=== PATIENT | male | born 1955 | race Caucasian/White ===

== ENCOUNTER → 2016-03-27 | Outpatient (CLI) | payer BC, OTHER ==
[~2016-03-27] MED LIST: AMIT PO; AML5T PO; ASPI81CH43 PO; CARV3.1213 PO; CYCL-181 PO; ESCI10TA PO; GABA-339 PO; INSUINJ32 SC; ISOS20TA49 PO; LORA-154 PO; METF-314 PO; MORP1CAP PO; NAPR-476 PO; NOR10T PO; NOR5T PO; PRAS10TA PO; TORS20TA20 PO
[2016-03-27 10:23] VITALS: BP_SYST 140; BP_SYST 142; BP_DIAS 67; BP_DIAS 72
== END | disposition home or self-care (01) ==
LOC: CHF HDHVI 11:13
PROVIDERS: ATTEND Internal Medicine Cardiovascular Disease
DX: I50.23 Acute on chronic systolic (congestive) heart failure (principal); I25.708 Atherosclerosis of coronary artery bypass graft(s), unspecified, with other forms of angina pectoris; I25.5 Ischemic cardiomyopathy; Z95.1 Presence of aortocoronary bypass graft; Z95.5 Presence of coronary angioplasty implant and graft; I63.8 Other cerebral infarction
CPT/HCPCS: G0166

== ENCOUNTER → 2016-03-28 | Outpatient (CLI) | payer BC, OTHER ==
[2016-03-28 10:10] VITALS: BP_SYST 120; BP_SYST 123; BP_DIAS 71; BP_DIAS 75
== END | disposition home or self-care (01) ==
LOC: CHF HDHVI 09:37
PROVIDERS: ATTEND Internal Medicine Cardiovascular Disease
DX: I50.23 Acute on chronic systolic (congestive) heart failure (principal); I63.8 Other cerebral infarction; I25.5 Ischemic cardiomyopathy; I25.708 Atherosclerosis of coronary artery bypass graft(s), unspecified, with other forms of angina pectoris; Z95.1 Presence of aortocoronary bypass graft; Z95.5 Presence of coronary angioplasty implant and graft
CPT/HCPCS: G0166

== ENCOUNTER → 2016-04-23 | Outpatient (CLI) | payer BC, OTHER ==
[2016-04-23 12:14] LABS: Basophils # (auto) 0 uL; Basophils % (auto) 0.4 % (0.0-2.0); Eosinophils # (auto) 0.1 uL; Eosinophils % (auto) 1.2 % (0.0-7.0); Hematocrit 43.4 % (41.0-53.0); Hemoglobin 14.5 g/dL (13.5-17.5); Lymphocytes # (auto) 1.8 uL; Lymphocytes % (auto) 24.6 % (10.0-50.0); Mean Corpuscular Hemoglobin 27.2 pg (28.0-32.0); Mean Corpuscular Hgb Conc. 33.5 g/dL (32.0-36.0); Mean Corpuscular Volume 81.3 fL (80.0-100.0); Mean Platelet Volume 10.1 fL (7.4-10.4); Monocytes # (auto) 0.4 uL; Monocytes % (auto) 5.1 % (0.0-12.0); Neutrophils # (auto) 5.1 uL; Neutrophils % (auto) 68.7 % (37.0-80.0); Platelet Count (auto) 281 10^3/uL (140-450); Red Cell Distribution Width 14.1 % (11.6-16.0); White Blood Cell 7.4 10^3/uL (4.4-10.8)
[2016-04-23 13:45] LABS: BUN/Creatinine Ratio 17.5; Calcium 9.5 mg/dL (8.5-10.1); Potassium 4.2 mmol/L (3.5-5.1)
== END | disposition home or self-care (01) ==
LOC: LAB 09:46
PROVIDERS: ATTEND Internal Medicine Cardiovascular Disease
DX: I10 Essential (primary) hypertension (principal); D64.9 Anemia, unspecified
CPT/HCPCS: 36415; 80048; 85025

== ENCOUNTER → 2016-05-01 | Outpatient (CLI) | payer BC, OTHER ==
[2016-05-01 10:16] VITALS: BP_SYST 126; BP_SYST 132; BP_DIAS 70; BP_DIAS 79
== END | disposition home or self-care (01) ==
LOC: CHF HDHVI 09:54
PROVIDERS: ATTEND Internal Medicine Cardiovascular Disease
DX: I50.23 Acute on chronic systolic (congestive) heart failure (principal); I25.5 Ischemic cardiomyopathy; I25.708 Atherosclerosis of coronary artery bypass graft(s), unspecified, with other forms of angina pectoris; I63.9 Cerebral infarction, unspecified; Z95.5 Presence of coronary angioplasty implant and graft; Z95.1 Presence of aortocoronary bypass graft; Z98.61 Coronary angioplasty status
CPT/HCPCS: G0166

== ENCOUNTER → 2016-05-02 | Outpatient (CLI) | payer BC, OTHER ==
[2016-05-02 10:15] VITALS: BP_SYST 109; BP_SYST 111; BP_DIAS 56; BP_DIAS 57
== END | disposition home or self-care (01) ==
LOC: CHF HDHVI 10:14
PROVIDERS: ATTEND Internal Medicine Cardiovascular Disease
DX: I50.23 Acute on chronic systolic (congestive) heart failure (principal); I25.708 Atherosclerosis of coronary artery bypass graft(s), unspecified, with other forms of angina pectoris; I25.5 Ischemic cardiomyopathy; I63.9 Cerebral infarction, unspecified; Z98.61 Coronary angioplasty status; Z95.5 Presence of coronary angioplasty implant and graft; Z95.1 Presence of aortocoronary bypass graft
CPT/HCPCS: G0166

== ENCOUNTER → 2016-05-21 | Outpatient (CLI) | payer BC, OTHER ==
[2016-05-21 10:22] VITALS: BP_SYST 109; BP_SYST 112; BP_DIAS 68; BP_DIAS 71
== END ==
LOC: CHF HDHVI 09:53
PROVIDERS: ATTEND Internal Medicine Cardiovascular Disease
DX: I25.708 Atherosclerosis of coronary artery bypass graft(s), unspecified, with other forms of angina pectoris (principal); I25.5 Ischemic cardiomyopathy; I50.23 Acute on chronic systolic (congestive) heart failure; Z98.61 Coronary angioplasty status; Z95.1 Presence of aortocoronary bypass graft; I63.9 Cerebral infarction, unspecified; Z95.5 Presence of coronary angioplasty implant and graft
CPT/HCPCS: G0166

== ENCOUNTER 2017-03-07 16:40 | Inpatient (IN) | payer OTHER, BC ==
[~2017-03-07] VITALS: Ht 188 cm; Wt 115.7 kg
[~2017-03-07 16:40] MED LIST changes: +CAR3125T PO; -CARV3.1213 PO; +CLON0.2T PO; +HYDR-4683 PO; +ISO60SRT PO; -ISOS20TA49 PO; +LISI-646 PO; -METF-314 PO; +METF-371 PO; +METO25TA62 PO; +MONT10TA34 PO; -NOR5T PO; +RANO1000 PO; +SIMV-8 PO; +SULF800T7 PO; +TAMS0.4C36 PO
[2017-03-07] MEDS ORDERED: FLUMAZENIL 0.1 MG/ML INJ 10ML MDV IV ONE (17:15)
[2017-03-07 17:55] LABS: Basophils # (auto) 0 uL; Basophils % (auto) 0.1 % (0.0-2.0); Eosinophils # (auto) 0 uL; Hemoglobin 13.2 g/dL (13.5-17.5); Lymphocytes # (auto) 0.7 uL; Lymphocytes % (auto) 7.1 % (10.0-50.0); Mean Corpuscular Hemoglobin 27.6 pg (28.0-32.0); Mean Corpuscular Hgb Conc. 33.1 g/dL (32.0-36.0); Mean Corpuscular Volume 83.3 fL (80.0-100.0); Monocytes # (auto) 0.5 uL; Neutrophils # (auto) 8.7 uL; Neutrophils % (auto) 87.8 % (37.0-80.0); Platelet Count (auto) 223 10^3/uL (140-450); Red Cell Distribution Width 14.8 % (11.8-14.3); White Blood Cell 9.9 10^3/uL (4.4-10.8)
[2017-03-07 18:08] LABS: INR 0.92 (0.9-1.15); Partial Thromboplastin Time 25.6 sec (22.64-33.71)
[2017-03-07 18:18] LABS: Albumin 3.3 g/dL (3.4-5.0); BUN/Creatinine Ratio 20.1; Calcium 8.4 mg/dL (8.5-10.1); Potassium 4.7 mmol/L (3.5-5.1)
[2017-03-07 18:24] LABS: Acetaminophen < 2.0 ug/mL (10-30); Salicylate < 1.7 mg/dL (2.8-20.0)
[2017-03-07 18:27] LABS: Bilirubin, Total 0.6 mg/dL (0.2-1.0); Total Protein 7.3 g/dL (6.4-8.2)
[2017-03-07 21:00] LABS: Urine Bacteria NONE SEEN /hpf (None Seen); Urine Blood 2+ /uL (Negative); Urine Specific Gravity 1.019 (1.001-1.035); Urine WBC 16 /hpf (0 - 3)
[2017-03-07 21:08] LABS: Alcohol, Urine < 3.0 mg/dL (0-5); Amphetamine Screen, Urine NEGATIVE (NEGATIVE); Barbiturate Scree,Urine NEGATIVE (NEGATIVE); Benzodiazephine Screen, Urine NEGATIVE (NEGATIVE); Cannabinoid Screen, Urine NEGATIVE (NEGATIVE); Cocaine Screen, Urine NEGATIVE (NEGATIVE); Opiate Scree,Urine POSITIVE (NEGATIVE); Phencyclidine Screen, Urine NEGATIVE (NEGATIVE)
[2017-03-08] MEDS ORDERED: ONDANSETRON HCL 4 MG/2 ML VIAL IV PRN (02:30)
[2017-03-08] MEDS ORDERED: SODIUM CHLORIDE 0.9% 500 ML IV ONE (02:30)
[2017-03-08] MEDS ORDERED: SODIUM CHLORIDE 0.9% 1,000 ML IV SCH (02:30)
[2017-03-08] MEDS ORDERED: HYDROcodone-ACET 5/325MG TAB PO PRN (02:30)
[2017-03-08] MEDS ORDERED: ACETAMINOPHEN 325 MG TAB PO PRN (02:30)
[2017-03-08] MEDS ORDERED: DEXTROSE (50%) 50ML SYRG IV PRN (02:30)
[2017-03-08] MEDS ORDERED: cefTRIAXone 1GM/10ml IVPUSH 10 ML IV ONE (02:45)
[2017-03-08 03:15] VITALS: BP 139/77
[2017-03-08 05:34] VITALS: BP 139/73
[2017-03-08] MEDS: InsuLIN REG 1unit/0.01ml Soln (100units/ml) SC SCH ×2 (06:00→12:00)
[2017-03-08] MEDS: ACCU-CHEK COMFORT CURVE STRIP VI SCH ×2 (06:09→13:04)
[2017-03-08 08:00] VITALS: BP 128/74
[2017-03-08 08:21] VITALS: BP 128/74
[2017-03-08] MEDS ORDERED: PANTOPRAZOLE 40 MG TAB PO SCH (10:00)
[2017-03-08] MEDS ORDERED: ISOSORBIDE MONONITRATE 60 MG TAB PO SCH (10:00)
[2017-03-08] MEDS ORDERED: METOPROLOL SUCCINATE XL 50 MG TAB PO SCH (10:00)
[2017-03-08] MEDS ORDERED: ENOXAPARIN SOD 30 MG/0.3 ML SYRINGE SC SCH (10:00)
[2017-03-08] MEDS ORDERED: CIPR-173 PO (11:34)
[2017-03-08 12:57] VITALS: BP 152/92
[2017-03-08 13:12] VITALS: BP 128/74
[2017-03-08] MEDS ORDERED: PRAVASTATIN SODIUM 20 MG TAB PO SCH (22:00)
[2017-03-08] MEDS ORDERED: PATIENTS OWN MEDICATION (simvastatin 20 MG) PO SCH (22:00)
[2017-03-08] MEDS ORDERED: MONTELUKAST SODIUM 10 MG TAB PO SCH (22:00)
[2017-03-08] MEDS ORDERED: cefTRIAXone 1GM/10ml IVPUSH 10 ML IV SCH (22:00)
== END 2017-03-08 14:00 | disposition home or self-care (01) | DRG 689 ==
LOC: ER 16:40 → OVERFLOW 16:41 → CENTRAL 03-08 03:15
PROVIDERS: ADMIT Nurse Practitioner; ATTEND Nurse Practitioner
DX: N39.0 Urinary tract infection, site not specified (principal); G92 Toxic encephalopathy; E11.22 Type 2 diabetes mellitus with diabetic chronic kidney disease; I13.0 Hypertensive heart and chronic kidney disease with heart failure and stage 1 through stage 4 chronic kidney disease, or unspecified chronic kidney disease; I50.9 Heart failure, unspecified; N18.3 Chronic kidney disease, stage 3 (moderate); E78.5 Hyperlipidemia, unspecified; G89.29 Other chronic pain; I25.10 Atherosclerotic heart disease of native coronary artery without angina pectoris; M54.9 Dorsalgia, unspecified; Z79.82 Long term (current) use of aspirin; Z79.899 Other long term (current) drug therapy; Z79.4 Long term (current) use of insulin; Z86.73 Personal history of transient ischemic attack (TIA), and cerebral infarction without residual deficits; I25.2 Old myocardial infarction; Z82.3 Family history of stroke; Z83.3 Family history of diabetes mellitus; Z82.49 Family history of ischemic heart disease and other diseases of the circulatory system; Z95.1 Presence of aortocoronary bypass graft; Z90.49 Acquired absence of other specified parts of digestive tract; Z80.9 Family history of malignant neoplasm, unspecified; T40.605A Adverse effect of unspecified narcotics, initial encounter
CPT/HCPCS: 36415; 70450; 71045; 80053; 80307; 80329; 81001; 82962; 83880; 84484; 85025; 85610; 85730; 93005; 96374

== ENCOUNTER 2020-09-14 15:24 | Inpatient (IN) | payer BC, OTHER ==
[~2020-09-14] VITALS: Ht 185.4 cm; Wt 108.5 kg
[~2020-09-14 15:24] MED LIST changes: -AMIT PO; +AMIT10TA8 PO; +CIPR-173 PO; -HYDR-4683 PO; -LISI-646 PO; +LISI20TA28 PO; -LORA-154 PO; +LORA-483 PO; -METO25TA62 PO; +METO25TA93 PO; -MONT10TA34 PO; +MONT10TA42 PO; -NAPR-476 PO; -NOR10T PO; -SULF800T7 PO; -TAMS0.4C36 PO
[2020-09-14 15:54] LABS: Basophils # (auto) 0 10 ^3/uL (0-0.2); Eosinophils # (auto) 0 10 ^3/uL (0-0.8); Monocytes # (auto) 0.1 10 ^3/uL (0-1.3); Neutrophils # (auto) 1.5 10 ^3/uL (1.6-8.6); Nucleated Red Blood Cells % 0.1 %; White Blood Cell 2.5 10^3/uL (4.4-10.8)
[2020-09-14 15:58] LABS: Basophils % (auto) 0.2 % (0.0-2.0); Eosinophils % (auto) 0.5 % (0.0-7.0); Hematocrit 19.7 % (41.0-53.0); Lymphocytes # (auto) 0.9 10 ^3/uL (0.4-5.4); Lymphocytes % (auto) 35.3 % (10.0-50.0); Mean Corpuscular Hemoglobin 24.8 pg (28.0-32.0); Mean Corpuscular Hgb Conc. 33.9 g/dL (32.0-36.0); Mean Corpuscular Volume 73.2 fL (80.0-100.0); Monocytes % (auto) 5.4 % (0.0-12.0); Neutrophils % (auto) 58.6 % (37.0-80.0); Red Cell Distribution Width 17.5 % (11.8-14.3)
[2020-09-14 16:10] LABS: Albumin 3.1 g/dL (3.4-5.0); Calcium 8.4 mg/dL (8.5-10.1); Magnesium 1.3 mg/dL (1.6-2.6); Potassium 4.1 mmol/L (3.5-5.1)
[2020-09-14 16:11] LABS: INR 1.01 (0.9-1.15); Partial Thromboplastin Time 21.5 sec (23.0-31.2)
[2020-09-14 16:12] LABS: BUN/Creatinine Ratio 16.6
[2020-09-14 16:14] LABS: Hemoglobin 6.7 g/dL (13.5-17.5)
[2020-09-14 16:18] LABS: Bilirubin, Total 0.4 mg/dL (0.2-1.0); Total Protein 6.3 g/dL (6.4-8.2)
[2020-09-14] MEDS ORDERED: MORPHINE SULFATE 4 MG/ML SYR/VIAL IV ONE ×2 (16:30→19:00)
[2020-09-14] MEDS ORDERED: ONDANSETRON HCL 4 MG/2 ML VIAL IV ONE ×2 (16:30→19:00)
[2020-09-14] MEDS ORDERED: NITROGLYCERIN 0.4 MG SL TAB SL ONE ×2 (16:45→18:45)
[2020-09-14] MEDS ORDERED: ASPirin 81 mg TAB PO ONE (16:45)
[2020-09-14] MEDS ORDERED: InsuLIN REG 1unit/0.01ml Soln (100units/ml) IV ONE (18:00)
[2020-09-14] MEDS ORDERED: NITROGLYCERIN 0.4 MG SL TAB SL PRN (21:00)
[2020-09-14] MEDS ORDERED: DEXTROSE (50%) 50ML SYRG IV PRN (21:00)
[2020-09-14] MEDS ORDERED: ONDANSETRON HCL 4 MG/2 ML VIAL IV PRN (21:00)
[2020-09-14] MEDS ORDERED: ACETAMINOPHEN 325 MG TAB PO PRN (21:00)
[2020-09-14] MEDS ORDERED: TEMAZEPAM 15 MG CAP PO PRN (21:00)
[2020-09-14 21:19] VITALS: BP 126/64
[2020-09-14 21:35] VITALS: BP 116/63
[2020-09-14 22:00] VITALS: BP 133/85
[2020-09-14] MEDS: InsuLIN REG 1unit/0.01ml Soln (100units/ml) SC SCH (22:00)
[2020-09-14] MEDS: ATORVASTATIN 20 MG TAB PO SCH (22:13)
[2020-09-14] MEDS: CARVEDILOL 3.125 MG TAB PO SCH (22:14)
[2020-09-14] MEDS: RANOLAZINE ER 500 MG TAB PO SCH (22:14)
[2020-09-14] MEDS: GABAPENTIN 300 MG CAP PO SCH (22:14)
[2020-09-14] MEDS: ACCU-CHEK COMFORT CURVE STRIP VI SCH (22:18)
[2020-09-14 22:49] VITALS: BP 133/85
[2020-09-14 23:45] VITALS: BP 133/85
[2020-09-14 23:49] VITALS: BP 133/85
[2020-09-15] MEDS: MORPHINE SULF INJ 2 MG/ML SYRINGE 1ML IV PRN ×5 (00:19→22:16)
[2020-09-15] MEDS: HYDROcodone-ACET 5/325MG TAB PO PRN ×2 (01:27→09:44)
[2020-09-15 05:00] VITALS: BP 119/68
[2020-09-15 05:36] LABS: Basophils # (auto) 0 10 ^3/uL (0-0.2); Eosinophils # (auto) 0 10 ^3/uL (0-0.8); Mean Corpuscular Hemoglobin 27.4 pg (28.0-32.0); Monocytes # (auto) 0.2 10 ^3/uL (0-1.3); Neutrophils # (auto) 1.4 10 ^3/uL (1.6-8.6); White Blood Cell 2.5 10^3/uL (4.4-10.8)
[2020-09-15 05:48] LABS: Basophils % (auto) 0.1 % (0.0-2.0); Eosinophils % (auto) 1.2 % (0.0-7.0); Hematocrit 19.8 % (41.0-53.0); Hemoglobin 7.2 g/dL (13.5-17.5); Lymphocytes # (auto) 0.8 10 ^3/uL (0.4-5.4); Lymphocytes % (auto) 33.7 % (10.0-50.0); Mean Corpuscular Hgb Conc. 36.1 g/dL (32.0-36.0); Mean Corpuscular Volume 75.8 fL (80.0-100.0); Monocytes % (auto) 7.6 % (0.0-12.0); Neutrophils % (auto) 57.4 % (37.0-80.0); Nucleated Red Blood Cells % 0.3 %; Red Blood Cells 2.62 10^6/uL (4.5-5.90); Red Cell Distribution Width 19.5 % (11.8-14.3)
[2020-09-15] MEDS: ACCU-CHEK COMFORT CURVE STRIP VI SCH ×4 (05:55→22:00)
[2020-09-15] MEDS: InsuLIN REG 1unit/0.01ml Soln (100units/ml) SC SCH ×4 (05:59→22:27)
[2020-09-15 06:06] LABS: Calcium 8.2 mg/dL (8.5-10.1)
[2020-09-15] MEDS: GABAPENTIN 300 MG CAP PO SCH ×3 (06:24→21:12)
[2020-09-15 09:00] VITALS: BP 112/57
[2020-09-15] MEDS: FUROSEMIDE 20 MG TAB PO SCH (09:43)
[2020-09-15] MEDS: RANOLAZINE ER 500 MG TAB PO SCH ×2 (09:43→21:13)
[2020-09-15] MEDS: amLODIPine BESYLATE 5 MG TAB PO SCH (09:43)
[2020-09-15] MEDS: PANTOPRAZOLE 40 MG TAB PO SCH (09:44)
[2020-09-15] MEDS: ISOSORBIDE MONONITRATE ER 60 MG TAB PO SCH (09:45)
[2020-09-15] MEDS: CARVEDILOL 3.125 MG TAB PO SCH ×2 (09:45→21:13)
[2020-09-15] MEDS ORDERED: PRASUGREL HCL 10 MG TAB PO SCH (10:00)
[2020-09-15] MEDS ORDERED: ASPirin 81 mg TAB PO SCH (10:00)
[2020-09-15] MEDS ORDERED: ENOXAPARIN SOD 40 MG/0.4 ML SYRINGE SC SCH (10:00)
[2020-09-15 13:00] VITALS: BP 111/65
[2020-09-15] MEDS: OXYCODONE W/ ACETAMINOPHEN 5/325MG TABLET PO PRN ×2 (13:04→18:50)
[2020-09-15 16:26] VITALS: BP 100/43
[2020-09-15 17:00] VITALS: BP 102/57
[2020-09-15] MEDS: ATORVASTATIN 20 MG TAB PO SCH (21:13)
[2020-09-15] MEDS: MORPHINE SULF 15mg ER tab PO SCH (21:14)
[2020-09-15 22:00] VITALS: BP 110/74
[2020-09-16] MEDS: MORPHINE SULF INJ 2 MG/ML SYRINGE 1ML IV PRN ×2 (03:29→14:20)
[2020-09-16 05:00] VITALS: BP 111/75
[2020-09-16 05:45] LABS: Basophils # (auto) 0 10 ^3/uL (0-0.2); Eosinophils # (auto) 0.1 10 ^3/uL (0-0.8); Lymphocytes # (auto) 0.9 10 ^3/uL (0.4-5.4); Monocytes # (auto) 0.3 10 ^3/uL (0-1.3)
[2020-09-16 05:48] LABS: Basophils % (auto) 0.2 % (0.0-2.0); Eosinophils % (auto) 1.7 % (0.0-7.0); Hematocrit 22.3 % (41.0-53.0); Hemoglobin 7.6 g/dL (13.5-17.5); Lymphocytes % (auto) 25.4 % (10.0-50.0); Mean Corpuscular Hemoglobin 26.1 pg (28.0-32.0); Mean Corpuscular Hgb Conc. 34.3 g/dL (32.0-36.0); Mean Corpuscular Volume 76.1 fL (80.0-100.0); Monocytes % (auto) 8.9 % (0.0-12.0); Neutrophils # (auto) 2.2 10 ^3/uL (1.6-8.6); Neutrophils % (auto) 63.8 % (37.0-80.0); Red Blood Cells 2.93 10^6/uL (4.5-5.90); Red Cell Distribution Width 18.9 % (11.8-14.3); White Blood Cell 3.4 10^3/uL (4.4-10.8)
[2020-09-16 05:57] LABS: Potassium 3.9 mmol/L (3.5-5.1)
[2020-09-16 06:10] LABS: BUN/Creatinine Ratio 19.3; Calcium 8.1 mg/dL (8.5-10.1); Magnesium 1.4 mg/dL (1.6-2.6)
[2020-09-16] MEDS: GABAPENTIN 300 MG CAP PO SCH ×3 (06:18→22:00)
[2020-09-16] MEDS: InsuLIN REG 1unit/0.01ml Soln (100units/ml) SC SCH ×4 (06:19→22:00)
[2020-09-16] MEDS: ACCU-CHEK COMFORT CURVE STRIP VI SCH ×4 (06:19→22:00)
[2020-09-16 09:00] VITALS: BP 114/75
[2020-09-16] MEDS: CARVEDILOL 3.125 MG TAB PO SCH ×2 (09:45→22:00)
[2020-09-16] MEDS: ISOSORBIDE MONONITRATE ER 60 MG TAB PO SCH (09:46)
[2020-09-16] MEDS: amLODIPine BESYLATE 5 MG TAB PO SCH (09:46)
[2020-09-16] MEDS: MORPHINE SULF 15mg ER tab PO SCH ×2 (09:46→22:00)
[2020-09-16] MEDS: PANTOPRAZOLE 40 MG TAB PO SCH (09:46)
[2020-09-16] MEDS: FUROSEMIDE 20 MG TAB PO SCH (09:47)
[2020-09-16] MEDS: RANOLAZINE ER 500 MG TAB PO SCH ×2 (09:47→22:00)
[2020-09-16] MEDS: MAGNESIUM SULFATE 1GM/100ML 100 ML IV SCH ×2 (11:00→12:05)
[2020-09-16 13:00] VITALS: BP 117/72
[2020-09-16 17:00] VITALS: BP 99/53
[2020-09-16 22:00] VITALS: BP 122/69
[2020-09-16] MEDS: ATORVASTATIN 20 MG TAB PO SCH (22:00)
[2020-09-16] MEDS: MAGNESIUM OXIDE 400 MG TAB PO SCH (22:00)
[2020-09-17] MEDS: MORPHINE SULF INJ 2 MG/ML SYRINGE 1ML IV PRN ×2 (01:03→06:43)
[2020-09-17 05:00] VITALS: BP 113/67
[2020-09-17] MEDS: GABAPENTIN 300 MG CAP PO SCH ×2 (05:50→14:00)
[2020-09-17 06:27] LABS: Basophils # (auto) 0 10 ^3/uL (0-0.2); Eosinophils # (auto) 0.1 10 ^3/uL (0-0.8); Lymphocytes # (auto) 1.2 10 ^3/uL (0.4-5.4); Neutrophils # (auto) 2.3 10 ^3/uL (1.6-8.6)
[2020-09-17 06:30] LABS: Basophils % (auto) 0.2 % (0.0-2.0); Hemoglobin 7.7 g/dL (13.5-17.5); Lymphocytes % (auto) 29.1 % (10.0-50.0); Mean Corpuscular Hemoglobin 26.6 pg (28.0-32.0); Mean Corpuscular Hgb Conc. 34.9 g/dL (32.0-36.0); Mean Corpuscular Volume 76.3 fL (80.0-100.0); Monocytes # (auto) 0.4 10 ^3/uL (0-1.3); Monocytes % (auto) 9.2 % (0.0-12.0); Neutrophils % (auto) 58.5 % (37.0-80.0); Nucleated Red Blood Cells % 0.4 %; Red Blood Cells 2.89 10^6/uL (4.5-5.90); Red Cell Distribution Width 19.1 % (11.8-14.3)
[2020-09-17 06:49] LABS: Calcium 8.4 mg/dL (8.5-10.1); Magnesium 1.5 mg/dL (1.6-2.6); Potassium 3.9 mmol/L (3.5-5.1)
[2020-09-17] MEDS: InsuLIN REG 1unit/0.01ml Soln (100units/ml) SC SCH ×3 (06:50→16:43)
[2020-09-17 06:51] LABS: BUN/Creatinine Ratio 19.5
[2020-09-17] MEDS: ACCU-CHEK COMFORT CURVE STRIP VI SCH ×3 (06:51→16:42)
[2020-09-17] MEDS: RANOLAZINE ER 500 MG TAB PO SCH (09:58)
[2020-09-17] MEDS: PANTOPRAZOLE 40 MG TAB PO SCH (09:59)
[2020-09-17] MEDS: CARVEDILOL 3.125 MG TAB PO SCH (09:59)
[2020-09-17] MEDS: MAGNESIUM OXIDE 400 MG TAB PO SCH (09:59)
[2020-09-17] MEDS: ISOSORBIDE MONONITRATE ER 60 MG TAB PO SCH (09:59)
[2020-09-17] MEDS: FUROSEMIDE 20 MG TAB PO SCH (09:59)
[2020-09-17] MEDS: MORPHINE SULF 15mg ER tab PO SCH (10:00)
[2020-09-17] MEDS: amLODIPine BESYLATE 5 MG TAB PO SCH (10:00)
[2020-09-17] MEDS ORDERED: PHENAZOPYRIDINE HCL 100 MG TAB PO SCH (12:00)
[2020-09-17 12:33] VITALS: BP 126/78
[2020-09-17 12:48] VITALS: BP 110/67
[2020-09-17] MEDS: OXYCODONE W/ ACETAMINOPHEN 5/325MG TABLET PO PRN (14:50)
[2020-09-17 15:57] VITALS: BP 112/80
[2020-09-17] MEDS ORDERED: PRASUGREL HCL 10 MG TAB PO ONE (16:15)
[2020-09-17] MEDS ORDERED: ASPirin 81 mg TAB PO ONE (16:15)
[2020-09-17 16:50] VITALS: BP 126/85
== END 2020-09-17 17:23 | disposition home or self-care (01) | DRG 686 ==
LOC: ER 15:24 → EDBD 15:24 → TELE 20:48 → TELE-WESTW 22:32
PROVIDERS: ADMIT Nurse Practitioner; ATTEND Internal Medicine Geriatric Medicine
PROC: 30233N1 Transfusion of Nonautologous Red Blood Cells into Peripheral Vein, Percutaneous Approach (ICD-10-PCS; principal; 2020-09-14)
DX: C67.9 Malignant neoplasm of bladder, unspecified (principal); D61.810 Antineoplastic chemotherapy induced pancytopenia; S22.31XA Fracture of one rib, right side, initial encounter for closed fracture; I13.0 Hypertensive heart and chronic kidney disease with heart failure and stage 1 through stage 4 chronic kidney disease, or unspecified chronic kidney disease; I50.32 Chronic diastolic (congestive) heart failure; I24.9 Acute ischemic heart disease, unspecified; I25.110 Atherosclerotic heart disease of native coronary artery with unstable angina pectoris; D63.0 Anemia in neoplastic disease; I95.9 Hypotension, unspecified; N18.30 Chronic kidney disease, stage 3 unspecified; E66.9 Obesity, unspecified; E78.5 Hyperlipidemia, unspecified; D69.6 Thrombocytopenia, unspecified; E11.22 Type 2 diabetes mellitus with diabetic chronic kidney disease; E83.42 Hypomagnesemia; G89.29 Other chronic pain; Z20.822 Contact with and (suspected) exposure to COVID-19; R55 Syncope and collapse; M54.5 Low back pain; R31.9 Hematuria, unspecified; W18.39XA Other fall on same level, initial encounter; Y93.01 Activity, walking, marching and hiking; R77.8 Other specified abnormalities of plasma proteins; R29.6 Repeated falls; Z82.3 Family history of stroke; Z82.49 Family history of ischemic heart disease and other diseases of the circulatory system; Z83.3 Family history of diabetes mellitus; Z85.51 Personal history of malignant neoplasm of bladder; Z86.73 Personal history of transient ischemic attack (TIA), and cerebral infarction without residual deficits; Z90.49 Acquired absence of other specified parts of digestive tract; Z95.1 Presence of aortocoronary bypass graft; Y92.89 Other specified places as the place of occurrence of the external cause; Y99.8 Other external cause status; Z68.31 Body mass index [BMI] 31.0-31.9, adult
CPT/HCPCS: 36415; 70450; 71045; 71250; 72125; 74176; 80048; 80053; 82962; 83540; 83550; 83735; 83880; 84443; 84484; 85025; 85610; 85730; 86850; 86900; 86901; 86920; 87081; 87426; 93005; 93306; 96374; 96375; 96376; 99291; G0378; J1815; J2405